=== PATIENT | female | born 1985 | race Two or more races ===

== ENCOUNTER 2018-12-30 18:24 | Emergency (ER) | payer SELFPAY ==
[2018-12-30] MEDS ORDERED: HYDROCODONE/ACETAMINOPHEN 5-325 MG TABLET PO ONE (18:30)
--- NOTE | 2018-12-30 18:31 | ER Document Report ---
ED Medical Screen (RME) - General Chief Complaint: Wrist Injury Stated Complaint: HAND INJURY Time Seen by Provider: 12/30/18 18:30 Mode of Arrival: Ambulatory Information source: Patient Notes: Patient is a 33-year-old female who presents the emergency department with complaints of pain to her right forearm, wrist and hand after being bitten by dog. Patient reports she had surgery to her wrist approximately 1 year ago. Patient currently has ice placed in the area. X-ray orders placed. Normal radial pulse, normal motor and sensation distal to injury. I have greeted and performed a rapid initial assessment of this patient. A comprehensive ED assessment and evaluation of the patient, analysis of test results and completion of the medical decision making process will be conducted by additional ED providers. Dictation of this chart was performed using voice recognition software; therefore, there may be some unintended grammatical errors. TRAVEL OUTSIDE OF THE [place] IN LAST 30 DAYS: No - Related Data Allergies/Adverse Reactions: metformin Allergy (Verified 12/30/18 18:25) sulfamethoxazole [From Septra] Allergy (Unverified 07/16/14 16:11) trimethoprim [From Septra] Allergy (Unverified 07/16/14 16:11) jogre Allergy (Uncoded 07/16/14 16:14) Past Medical History - Past Medical History Cardiac Medical History: Reports: Hx Hypercholesterolemia, Hx Hypertension Neurological Medical History: Reports: Hx Migraine Endocrine Medical History: Reports: Hx Diabetes Mellitus Type 2
--- NOTE | 2018-12-30 19:00 | RADIOLOGY REPORT (SQ) ---
EXAM DESCRIPTION: FOREARM RIGHT COMPLETED DATE/TIME: 12/30/2018 6:51 pm REASON FOR STUDY: dog bite COMPARISON: None. NUMBER OF VIEWS: Two views. TECHNIQUE: Two radiographic images acquired of the right forearm, including elbow and wrist in at le ast one projection. LIMITATIONS: None. FINDINGS: MINERALIZATION: Normal. BONES: No acute fracture. No worrisome bone lesions. Old posttraumatic changes about the distal rad ius and ulna. SOFT TISSUES: Small punctate density noted at the base of the 3rd digit, better evaluated on hand rad iograph performed simultaneously. OTHER: No other significant finding. IMPRESSION: Small punctate density in the 3rd digit, otherwise no acute findings. TECHNICAL DOCUMENTATION: JOB ID: [id number] [employer]- All Rights Reserved Reading location - IP/workstation name: [email or web address]
--- NOTE | 2018-12-30 19:01 | RADIOLOGY REPORT (SQ) ---
EXAM DESCRIPTION: HAND RIGHT 3 VIEWS COMPLETED DATE/TIME: 12/30/2018 6:51 pm REASON FOR STUDY: dog bite COMPARISON: None. EXAM PARAMETERS: NUMBER OF VIEWS: Three views. TECHNIQUE: AP, lateral and oblique radiographic images acquired of the right hand. LIMITATIONS: None. FINDINGS: MINERALIZATION: Normal. BONES: No acute fracture or dislocation. No worrisome bone lesions. JOINTS: No effusions. SOFT TISSUES: Small punctate density near the base of the 3rd digit but appears to be on or close to the surface of the skin. OTHER: No other significant finding. IMPRESSION: Small punctate density at the base of the 3rd digit. Recommend direct visualization as this appears to be on or near the surface of the skin. TECHNICAL DOCUMENTATION: JOB ID: [id number] [employer]- All Rights Reserved Reading location - IP/workstation name: [email or web address]
[2018-12-30] MEDS ORDERED: AMOXICILLIN TR/POT CLAVULANATE 500-125 MG TAB PO ONE (19:04)
[2018-12-30] MEDS ORDERED: AMOXICILLIN TRIHYD 250 MG CAPSULE PO ONE (19:04)
--- NOTE | 2018-12-30 19:12 | ER Document Report ---
Addendum entered and electronically signed by JAYY CUTLER NP 12/30/18 20:54: Course - Re-evaluation Re-evalutation: 12/30/18 20:53 late entry, lacerations were irrigated for 15 minutes under tap water. Laceration was additionally irrigated with 1 L saline. - Vital Signs Vital signs: Temp Pulse Resp BP Pulse Ox 98.4 F 82 18 169/98 H 97 12/30/18 19:58 12/30/18 19:58 12/30/18 19:58 12/30/18 19:58 12/30/18 19:58 Original Note: HPI - HPI Patient complains to provider of: Right wrist injury Time Seen by Provider: 12/30/18 18:30 Onset: Just prior to arrival Onset/Duration: Sudden Quality of pain: Achy Pain Level: 5 Context: Patient states that her dogs were fighting and she was attempting to break up the fight. Patient states that her dog bit down on her right wrist and hand. Patient with a laceration to the wrist area and superficial lacerations to dorsal aspect of right hand and right thumb. Patient is right-hand dominant. Tetanus immunizations up-to-date. Associated Symptoms: Other - Right hand injury Exacerbated by: Movement Relieved by: Denies Similar symptoms previously: No Recently seen / treated by doctor: No - ROS ROS below otherwise negative: Yes Systems Reviewed and Negative: Yes All other systems reviewed and negative - NEURO Neurology: DENIES: Weakness - GASTROINTESTINAL Gastrointestinal: DENIES: Nausea - REPRODUCTIVE Reproductive: DENIES: : - MUSCULOSKELETAL Musculoskeletal: REPORTS: Extremity pain, Swelling - DERM Skin Problems: Abrasion, Laceration Past Medical History - General Information source: Patient - Social History Smoking Status: Current Every Day Smoker Smoking Education Provided: Yes Frequency of alcohol use: None Drug Abuse: None Occupation: None Lives with: Family Family History: Reviewed & Not Pertinent - Past Medical History Cardiac Medical History: Reports: Hx Hypertension Neurological Medical History: Reports: Hx Migraine Endocrine Medical History: Reports: Hx Diabetes Mellitus Type 2 - Borderline Past Surgical History: Reports: Hx Orthopedic Surgery Vertical Provider Document - CONSTITUTIONAL Agree With Documented VS: Yes Exam Limitations: No Limitations General Appearance: WD/WN, No Apparent Distress - INFECTION CONTROL TRAVEL OUTSIDE OF THE [place] IN LAST 30 DAYS: No - HEENT HEENT: Atraumatic, Normocephalic - NECK Neck: Normal Inspection - RESPIRATORY Respiratory: Breath Sounds Normal, No Respiratory Distress - CARDIOVASCULAR Cardiovascular: Regular Rate, Regular Rhythm Pulses: Normal: Radial - BACK Back: Normal Inspection - MUSCULOSKELETAL/EXTREMETIES Musculoskeletal/Extremeties: MAEW, Tender - Patient with tenderness over right wrist, right thumb and dorsum of right hand., Eccymosis - Ecchymosis over dorsum of right hand with 1+ edema - NEURO Level of Consciousness: Awake, Alert, Appropriate Motor/Sensory: No Motor Deficit - DERM Integumentary: Warm, Dry, Laceration - 1 cm laceration over volar aspect of right wrist, superficial half centimeter laceration to dorsal aspect of right hand, abrasion to right thumb. No tendon deficit. No tendon laceration. Course - Re-evaluation Re-evalutation: 12/30/18 19:10 Patient with piece of glitter that corresponded to small radiopaque lesion noted on patient's hand x-ray on the surface of the third digit. - Vital Signs Vital signs: Temp Pulse Resp BP Pulse Ox 98.7 F 88 19 168/106 H 98 12/30/18 18:34 12/30/18 18:34 12/30/18 18:34 12/30/18 18:34 12/30/18 18:34 - Diagnostic Test Radiology reviewed: Image reviewed, Reports reviewed Discharge - Discharge Clinical Impression: Dog bite Qualifiers: Encounter type: initial encounter Qualified Code(s): W54.0XXA - Bitten by dog, initial encounter Wrist laceration Qualifiers: Encounter type: initial encounter Laterality: right Qualified Code(s): S61.511A - Laceration without foreign body of right wrist, initial encounter Hand abrasion Qualifiers: Encounter type: initial encounter Laterality: right Qualified Code(s): S60.511A - Abrasion of right hand, initial encounter Hand laceration Qualifiers: Encounter type: initial encounter Foreign body presence: without foreign body Laterality: right Qualified Code(s): S61.411A - Laceration without foreign body of right hand, initial encounter Condition: Stable Disposition: HOME, SELF-CARE Instructions: Animal Bites ([facility]), Augmentin ([facility]), Dressing Instructions for Open Wounds ([facility]), Non-Sutured Laceration ([facility]), Prophylactic Antibiotic ([facility]) Additional Instructions: Return immediately for any new or worsening symptoms Followup with your primary care provider, call tomorrow to make a followup appointment Change dressings at least daily. Monitor for any signs of infection, redness, streaks, fever or purulent drainage. Return for any signs of infection, worsening pain, fever or new symptoms. Follow-up with hand surgeon for any persistent pain or problems. Prescriptions: Amox Tr/Potassium Clavulanate [Augmentin 875-125 Tablet] 1 tab PO BID 5 Days tablet Hydrocodone/Acetaminophen [[place] 5-325 mg Tablet] 1 tab PO Q6 PRN #8 tablet PRN Reason: Naproxen [Naprosyn 250 Nmg Tablet] 1 tab PO BID #14 tablet Forms: Smoking Cessation Education Referrals: OFELIA CARDENAS DO [ACTIVE STAFF] - 01/02/19
[2018-12-30 19:59] VITALS: BP 169/98
== END 2018-12-30 20:01 | disposition home or self-care (01) ==
LOC: ER 18:24
DX: S60.871A Other superficial bite of right wrist, initial encounter (principal); S60.571A Other superficial bite of hand of right hand, initial encounter; S60.371A Other superficial bite of right thumb, initial encounter; W54.0XXA Bitten by dog, initial encounter; Y93.K9 Activity, other involving animal care
CPT/HCPCS: 99283; 73090; 73130; J3490